=== PATIENT | male | born 1990 | race African-American/Black ===

== ENCOUNTER 2018-08-12 11:00 | Emergency (ER) | payer OTHER ==
[~2018-08-12] VITALS: Ht 177.8 cm; Wt 83.9 kg
[~2018-08-12 11:00] MED LIST: AUGMENTIN 875875 M1 PO; FAMOTIDINE 20 M20 MG PO; TRAMADOL 50 MG50 MG PO
[2018-08-12 11:07] VITALS: BP 131/80
== END 2018-08-12 12:49 | disposition home or self-care (01) ==
LOC: ER 11:00
DX: M79.645 Pain in left finger(s) (principal); M79.672 Pain in left foot; F17.210 Nicotine dependence, cigarettes, uncomplicated; W23.0XXA Caught, crushed, jammed, or pinched between moving objects, initial encounter; Y93.89 Activity, other specified; Y92.89 Other specified places as the place of occurrence of the external cause; Y99.8 Other external cause status